=== PATIENT | female | born 1970 | race Caucasian/White ===

== ENCOUNTER 2019-01-21 01:34 | Emergency (ER) | payer OTHER ==
[~2019-01-21] VITALS: Ht 152.4 cm; Wt 108.9 kg
[2019-01-21] MEDS ORDERED: IV NORMAL SALINE 1,000ML 1,000 ML IV SCH (01:51)
--- NOTE | 2019-01-21 01:55 | ED.ADGEN ---
Adult General Chief Complaint Chief Complaint flank pain HPI HPI 48 years old female presented emergency department with left flank pain radiating to the left groin S so she'll with nausea no vomiting no diarrhea no urgency no frequency no hematuria she has a history of kidney stones in the past stated this feels the same symptoms started 45 minutes ago rated 10 out of 10 Review of Systems Review of Systems Constitutional: Denies fever or chills [] Eyes: Denies change in visual acuity, redness, or eye pain [] HENT: Denies nasal congestion or sore throat [] Respiratory: Denies cough or shortness of breath [] Cardiovascular: No additional information not addressed in HPI [] GI: Denies abdominal pain, nausea, vomiting, bloody stools or diarrhea [] : Denies dysuria or hematuria [] Musculoskeletal: Denies back pain or joint pain [] Integument: Denies rash or skin lesions [] Neurologic: Denies headache, focal weakness or sensory changes [] Endocrine: Denies polyuria or polydipsia [] All other systems were reviewed and found to be within normal limits, except as documented in this note. Current Medications Current Medications Current Medications Medications (Trade) Dose Ordered Sig/Chrissie Start Time Stop Time Status Last Admin Dose Admin Ketorolac Tromethamine (Toradol 30mg Vial) 30 mg 1X ONCE 01/21/19 02:00 01/21/19 02:01 UNV Morphine Sulfate (Morphine 4mg Syringe) 4 mg PRN Q15MIN PRN 01/21/19 02:00 01/22/19 01:59 UNV Ondansetron HCl (Zofran) 4 mg 1X ONCE 01/21/19 02:00 01/21/19 02:01 UNV Sodium Chloride 1,000 ml @ 1,000 mls/hr Q1H 01/21/19 01:51 01/21/19 02:50 UNV Physical Exam Physical Exam Constitutional: Well developed, well nourished, no acute distress, non-toxic appearance. [] HENT: Normocephalic, atraumatic, bilateral external ears normal, oropharynx moist, no oral exudates, nose normal. [] Eyes: PERRLA, EOMI, conjunctiva normal, no discharge. [] Neck: Normal range of motion, no tenderness, supple, no stridor. [] Cardiovascular:Heart rate regular rhythm, no murmur [] Lungs & Thorax: Bilateral breath sounds clear to auscultation [] Abdomen: Bowel sounds normal, soft, no tenderness, no masses, no pulsatile masses. [] Skin: Warm, dry, no erythema, no rash. [] Back: No tenderness, + left CVA tenderness. [] Current Patient Data Vital Signs Vital Signs Date Time Temp Pulse Resp B/P (MAP) Pulse Ox O2 Delivery O2 Flow Rate FiO2 01/21/19 01:34 98.6 88 20 97 Room Air EKG EKG [] Radiology/Procedures Radiology/Procedures [] Course & Med Decision Making Course & Med Decision Making Pertinent Labs and Imaging studies reviewed. (See chart for details) [] Final Impression Final Impression [] Problems: (1) Flank pain (2) Acute flank pain (3) Kidney stone Dragon Disclaimer Dragon Disclaimer This electronic medical record was generated, in whole or in part, using a voice recognition dictation system. MARSHALL LEWIS MD Jan 21, 2019 01:55
[2019-01-21] MEDS ORDERED: MORPHINE SULFATE 4 MG/ML DISP.SYRIN. IV/SQ PRN (02:00)
[2019-01-21] MEDS ORDERED: ONDANSETRON PF 4 MG/2 ML VIAL. IV ONE (02:00)
[2019-01-21] MEDS ORDERED: KETOROLAC 30 MG/ML VIAL. IV ONE (02:00)
--- NOTE | 2019-01-21 02:23 | RAD ---
CT scan abdomen and pelvis without contrast 01/21/2019 CLINICAL HISTORY: Left flank pain. TECHNIQUE: Unenhanced, contiguous, 3 mm axial sections were obtained to the abdomen and pelvis. One or more of the following individualized dose reduction techniques were utilized for this study: 1. Automated exposure control. 2. Adjustment of the mA and/or kV according to patient size. 3. Use of iterative reconstruction technique. FINDINGS: Images through the lung bases are within normal limits. The liver parenchyma has a decreased attenuation consistent with fatty infiltration. The spleen, pancreas, and adrenal glands are within normal limits. Nonobstructing calculi are seen involving both kidneys. These measure 2 mm to 5 mm in size. Mild dilatation of the left intrarenal collecting system is seen. Within the mid left ureter a 4 mm ureteral calculus is seen. This is at the L4-5 level. It is causing mild obstruction of the left collecting system. No obstruction of the right collecting system is seen. The gallbladder is contracted. Atherosclerotic calcification of the abdominal aorta is seen. The abdominal aorta tapers normally. No free fluid or free air is seen within the abdomen. There is no evidence of bowel obstruction. The appendix is not visualized. No inflammatory changes are seen surrounding the cecum. Images through the pelvis demonstrate the urinary bladder distended with urine. No adnexal mass is seen. No free fluid is noted. Very mild S-shaped curvature of the thoracolumbar spine is seen. Degenerative changes are seen involving the lower thoracic and throughout the lumbar spine and both hips. IMPRESSION: 4 mm mid left ureteral calculus is seen which is causing mild obstruction of the left collecting system. Electronically signed by: Bernardino Le MD (01/21/2019 2:21 AM) [id number]
[2019-01-21] MEDS ORDERED: HYDR-3165 PO (02:33)
[2019-01-21] MEDS ORDERED: TAMS0.4C97 PO (02:33)
[2019-01-21 02:40] VITALS: BP_DIAS 70
[2019-01-21] MEDS ORDERED: OXYC1TAB15 PO (02:40)
[2019-01-21 02:51] LABS: BASO % 1 % (0-3); EOS # 0.1 x10^3/uL (0.0-0.7); EOS % 2 % (0-3); HEMOGLOBIN 12.5 g/dL (12.0-15.5); LYMPH # 1.9 x10^3/uL (1.0-4.8); LYMPH % 31 % (24-48); MEAN CORPUSCULAR HEMOGLOBIN 27 pg (25-35); MEAN CORPUSCULAR HGB CONC 34 g/dL (31-37); MEAN CORPUSCULAR VOLUME 80 fL (79-100); MONO # 0.5 x10^3/uL (0.0-1.1); MONO % 8 % (0-9); NEUT # 3.5 x10^3uL (1.8-7.7); NEUT % 59 % (31-73); PLATELET COUNT 256 x10^3/uL (140-400); RED BLOOD COUNT 4.61 x10^6/uL (3.50-5.40); RED CELL DISTRIBUTION WIDTH 14.3 % (11.5-14.5)
[2019-01-21 02:57] LABS: BACTERIA,URINE 0 /HPF (0-FEW); BILIRUBIN,URINE NEG (NEG); CLARITY,URINE CLOUDY; COLOR,URINE YELLOW; GLUCOSE,URINE NEG (NEG); NITRITE,URINE NEG (NEG); RBC,URINE TNTC /HPF (0-2); SQUAMOUS EPITHELIAL CELL,UR FEW /LPF; UROBILINOGEN,URINE 0.2 mg/dL (0.2 mg/dL); WBC,URINE OCC /HPF (0-4)
[2019-01-21 02:57] LABS: CREATININE 0.7 mg/dL (0.6-1.0); GFR 88.9; POTASSIUM 3.7 mmol/L (3.5-5.1)
[2019-01-21 03:30] VITALS: BP_SYST 74
== END 2019-01-21 03:40 | disposition home or self-care (01) ==
LOC: ER 01:34
DX: N20.0 Calculus of kidney (principal); Z87.442 Personal history of urinary calculi
CPT/HCPCS: 36415; 74176; 80048; 81001; 85025; 96374; 96375; 99284; J1885; J2405; J7030